=== PATIENT | female | born 1990 | race Caucasian/White ===

== ENCOUNTER 2017-10-21 20:02 | Emergency (ER) | payer OTHER ==
[~2017-10-21] VITALS: Ht 170.2 cm; Wt 127.0 kg
[~2017-10-21 20:02] MED LIST: ACETAMINOPHEN-1 EAC1 PO; AMOXICILLIN 50500 MG PO; CIPROFLOXACIN500 M1 PO; CIPROFLOXIN HC2.5 M1 OTIC; FLEXERIL PO; HYDROCODONE-AP1 EAC6 PO; IBUPROFEN 800800 M1 PO; IBUPROFEN 800800 MG PO; IRON325 PO; MEDROLDOSEPACK PO; NAPROSYN375 MG PO; NAPROSYN500 MG PO; NOHOMEMEDICATIONS; OVCON-351 EACH PO; PROAIR HFA8.5 GM INH; PROMETHAZINE D480 ML PO; PROVERA10 MG; ULTRAM 50MG TAB50 MG PO; ZOFRAN ODT4 MG PO; ZPAK PO
[2017-10-21 20:06] VITALS: BP 140/76
[2017-10-21] MEDS ORDERED: PENICILLIN VK500 MG PO (20:20)
[2017-10-21] MEDS ORDERED: NORCO 5-325 TA1 EAC1 PO (20:20)
== END 2017-10-21 20:28 | disposition home or self-care (01) ==
LOC: M.ERS 20:02
DX: K04.7 Periapical abscess without sinus (principal); F17.210 Nicotine dependence, cigarettes, uncomplicated; Z90.49 Acquired absence of other specified parts of digestive tract

== ENCOUNTER 2019-04-10 05:36 | Emergency (ER) | payer OTHER ==
[~2019-04-10] VITALS: Ht 170.2 cm; Wt 113.4 kg
[~2019-04-10 05:36] MED LIST changes: +NORCO 5-325 TA1 EAC1 PO; +PENICILLIN VK500 MG PO
[2019-04-10] MEDS ORDERED: FLEXERIL PO (06:05)
[2019-04-10] MEDS ORDERED: NORCO 5-325 TA1 EAC1 PO (06:05)
[2019-04-10 06:14] VITALS: BP 128/88
== END 2019-04-10 06:14 | disposition home or self-care (01) ==
LOC: M.ERS 05:36
DX: M54.5 Low back pain (principal); F17.210 Nicotine dependence, cigarettes, uncomplicated; Z90.89 Acquired absence of other organs; Z90.49 Acquired absence of other specified parts of digestive tract

== ENCOUNTER 2020-08-15 17:58 | Emergency (ER) | payer OTHER ==
[~2020-08-15] VITALS: Ht 170.2 cm; Wt 127.0 kg
[2020-08-15] MEDS ORDERED: CEPHALEXIN500 MG PO (18:44)
[2020-08-15 18:58] VITALS: BP 127/89
[2020-08-16] MEDS ORDERED: PREDNISONE 20 M20 M1 PO (13:38)
[2020-08-16] MEDS ORDERED: BACTRIM DS TAB1 EACH PO (13:38)
[2020-08-16] MEDS ORDERED: HYDROCODON-ACE1 EAC7 PO (13:43)
== END 2020-08-15 18:58 | disposition home or self-care (01) ==
LOC: M.ERS 17:58
DX: S11.95XA Open bite of unspecified part of neck, initial encounter (principal); W57.XXXA Bitten or stung by nonvenomous insect and other nonvenomous arthropods, initial encounter; Y93.89 Activity, other specified; Y92.89 Other specified places as the place of occurrence of the external cause; Y99.8 Other external cause status

== ENCOUNTER 2020-08-16 11:53 | Emergency (ER) | payer OTHER ==
[~2020-08-16] VITALS: Ht 170.2 cm; Wt 104.3 kg
[~2020-08-16 11:53] MED LIST changes: +CEPHALEXIN500 MG PO
[2020-08-16 12:46] LABS: HEMATOCRIT 45.5 % (37.0-47.0); HEMOGLOBIN 15.9 gm/dL (12.0-15.0); MCH 29.7 pg (26.0-34.0); MCHC 34.9 g/dL (28.0-37.0); MCV 85.1 fL (80.0-100.0); MPV 7.3 fl. (7.2-11.1); NUCLEATED RBCS 0 /100WBC; PLATELET COUNT* 218 thou/uL (150-400); RBC 5.34 mil/uL (4.20-5.00); RDW-CV 15.9 % (10.5-14.5)
[2020-08-16 12:57] LABS: CALCIUM 8.4 mg/dL (8.5-10.1); CREATININE 0.9 mg/dL (0.6-1.3); POTASSIUM 3.9 mmol/L (3.5-5.1)
[2020-08-16 13:02] LABS: ALBUMIN 3.5 g/dL (3.4-5.0); TOTAL BILIRUBIN 1.1 mg/dL (<0.1-1.0); TOTAL PROTEIN 7.3 g/dL (6.4-8.2)
[2020-08-16 13:17] LABS: ABSOLUTE LYMPHOCYTES 0.6 thou/uL (0.8-5.3); ABSOLUTE MONOCYTES 0.5 thou/uL (0.0-1.2); ABSOLUTE NEUTROPHILS 14.9 thou/uL (1.6-8.1); PLATELET ESTIMATE ADEQUATE
[2020-08-16] MEDS ORDERED: PREDNISONE 20 M20 M1 PO (13:38)
[2020-08-16] MEDS ORDERED: BACTRIM DS TAB1 EACH PO (13:38)
[2020-08-16] MEDS ORDERED: HYDROCODON-ACE1 EAC7 PO (13:43)
[2020-08-16 13:51] VITALS: BP 144/72
== END 2020-08-16 13:52 | disposition home or self-care (01) ==
LOC: M.ERS 11:53
PROVIDERS: Family Medicine
DX: L23.9 Allergic contact dermatitis, unspecified cause (principal); T63.331A Toxic effect of venom of brown recluse spider, accidental (unintentional), initial encounter; F17.210 Nicotine dependence, cigarettes, uncomplicated; Z90.49 Acquired absence of other specified parts of digestive tract; Y92.89 Other specified places as the place of occurrence of the external cause

== ENCOUNTER 2020-10-09 14:39 | Emergency (ER) | payer OTHER ==
[~2020-10-09] VITALS: Ht 170.2 cm; Wt 140.6 kg
[~2020-10-09 14:39] MED LIST changes: +BACTRIM DS TAB1 EACH PO; +HYDROCODON-ACE1 EAC7 PO; +PREDNISONE 20 M20 M1 PO
[2020-10-09 14:44] VITALS: BP 136/75
[2020-10-09 15:11] LABS: URINE BILIRUBIN NEGATIVE (Negative); URINE BLOOD 3+ (Negative); URINE CLARITY CLEAR; URINE COLOR YELLOW; URINE GLUCOSE-RANDOM NEGATIVE (Negative); URINE KETONES NEGATIVE (Negative); URINE LEUKOCYTES-REFLEX NEGATIVE (Negative); URINE NITRITE-REFLEX NEGATIVE (Negative); URINE PROTEIN NEGATIVE (Negative); URINE SPECIFIC GRAVITY 1.025 (1.005-1.030); URINE UROBILINOGEN 0.2 E.U./dl (0.2-1.0)
[2020-10-09 15:20] LABS: MUCUS None Seen strn/LPF (None Seen); SQUAMOUS >10 Many /LPF (0-3); URINE RBC >20 Many /HPF (0-2)
[2020-10-09 15:21] LABS: BACTERIA-REFLEX None Seen /HPF (None Seen); CASTS None Seen /LPF (None Seen); CRYSTALS None Seen /LPF (None Seen); URINE WBC-REFLEX None Seen /HPF (0-5)
== END 2020-10-09 16:55 | disposition home or self-care (01) ==
LOC: M.ERS 14:39
PROVIDERS: Physician Assistant
DX: N93.8 Other specified abnormal uterine and vaginal bleeding (principal); F17.210 Nicotine dependence, cigarettes, uncomplicated; Z90.49 Acquired absence of other specified parts of digestive tract